=== PATIENT | female | born 1960 | race Asian ===

== ENCOUNTER 2016-07-21 14:08 | Emergency (ER) | payer OTHER ==
[~2016-07-21] VITALS: Ht 160 cm; Wt 124.7 kg
[2016-07-21 17:24] LABS: PLATELET COUNT 338 K/uL (152-353)
[2016-07-21 17:35] LABS: POTASSIUM 3.3 mmol/L (3.6-5.2); SODIUM 138 mmol/L (136-145)
== END 2016-07-21 19:27 | disposition home or self-care (01) ==
LOC: ED 14:08
DX: I10 Essential (primary) hypertension (principal); B34.9 Viral infection, unspecified
CPT/HCPCS: 80053; 81000; 85027; 96372; 99283; J0360

== ENCOUNTER 2017-02-11 10:38 | Emergency (ER) | payer OTHER ==
[~2017-02-11] VITALS: Ht 157.5 cm; Wt 121.6 kg
[2017-02-11 10:39] VITALS: TEMP 98.6
[2017-02-11 11:43] LABS: PLATELET COUNT 284 K/uL (152-353)
[2017-02-11 11:51] LABS: POTASSIUM 3.6 mmol/L (3.6-5.2); SODIUM 134 mmol/L (136-145)
[2017-02-11 14:20] VITALS: BP 170/100
== END 2017-02-11 14:20 | disposition home or self-care (01) ==
LOC: ED 10:38
DX: I16.0 Hypertensive urgency (principal)
CPT/HCPCS: 36415; 80053; 85027; 99284

== ENCOUNTER 2017-05-04 17:56 | Emergency (ER) | payer OTHER ==
[~2017-05-04] VITALS: Ht 157.5 cm; Wt 111.1 kg
[2017-05-04 18:09] VITALS: TEMP 98.9
[2017-05-04 18:54] LABS: PLATELET COUNT 314 K/uL (152-353)
[2017-05-04 19:53] VITALS: BP 178/98
== END 2017-05-04 19:54 | disposition home or self-care (01) ==
LOC: ED 17:56
DX: J06.9 Acute upper respiratory infection, unspecified (principal)
CPT/HCPCS: 36415; 85027; 87081; 87804; 87880; 99283

== ENCOUNTER 2017-07-07 08:02 | Emergency (ER) | payer OTHER ==
[~2017-07-07] VITALS: Ht 157.5 cm; Wt 108.9 kg
[2017-07-07] MEDS ORDERED: AMLODIPINE BESYLATE PO (08:23)
[2017-07-07] MEDS ORDERED: CLONIDINE0.3 MG PO (08:24)
[2017-07-07] MEDS ORDERED: COZAAR100 MG PO (08:24)
[2017-07-07] MEDS ORDERED: HYDROCHLOROT50 MG PO (08:25)
[2017-07-07 08:36] LABS: PLATELET COUNT 291 K/uL (152-353)
[2017-07-07 08:42] LABS: POTASSIUM 3.4 mmol/L (3.6-5.2)
[2017-07-07 10:21] VITALS: BP 150/89; TEMP 98.1
== END 2017-07-07 10:31 | disposition home or self-care (01) ==
LOC: ED 08:02
PROVIDERS: Emergency Medicine
DX: R07.89 Other chest pain (principal)
CPT/HCPCS: 36415; 80053; 82550; 83880; 84484; 85027; 85379; 93005; 99283

== ENCOUNTER 2018-01-24 11:32 | Emergency (ER) | payer OTHER ==
[~2018-01-24] VITALS: Ht 162.6 cm; Wt 90.7 kg
[~2018-01-24 11:32] MED LIST: AMLODIPINE BESYLATE PO; CLONIDINE0.3 MG PO; COZAAR100 MG PO; HYDROCHLOROT50 MG PO
[2018-01-24 11:45] VITALS: TEMP 98
[2018-01-24 12:36] LABS: PLATELET COUNT 327 K/uL (152-353)
[2018-01-24 12:43] LABS: POTASSIUM 3.7 mmol/L (3.6-5.2)
[2018-01-24 13:22] VITALS: BP 137/96
== END 2018-01-24 13:45 | disposition home or self-care (01) ==
LOC: ED 11:32
PROVIDERS: Family Medicine
DX: J06.9 Acute upper respiratory infection, unspecified (principal); J30.9 Allergic rhinitis, unspecified
CPT/HCPCS: 36415; 80053; 85027; 87077; 87081; 87185; 87880; 99283

== ENCOUNTER 2018-05-08 10:45 | Emergency (ER) | payer OTHER ==
[~2018-05-08] VITALS: Ht 157.5 cm; Wt 119.3 kg
[2018-05-08 10:50] VITALS: BP 123/88; TEMP 98.3
== END 2018-05-08 10:50 | disposition home or self-care (01) ==
LOC: ED 10:45
DX: I10 Essential (primary) hypertension (principal)
CPT/HCPCS: 99281

== ENCOUNTER 2018-11-15 12:36 | Outpatient (CLI) | payer OTHER | END 2018-11-15 23:47 | disposition home or self-care (01) | LOC: RESP 12:36 | DX: I10 Essential (primary) hypertension (principal); Z12.31 Encounter for screening mammogram for malignant neoplasm of breast ==

== ENCOUNTER 2018-11-16 12:49 | Outpatient (CLI) | payer OTHER | END 2018-11-16 23:56 | disposition home or self-care (01) | LOC: RESP 12:49 | DX: I10 Essential (primary) hypertension (principal); Z12.31 Encounter for screening mammogram for malignant neoplasm of breast | CPT/HCPCS: 93306 ==

== ENCOUNTER 2019-01-02 13:56 | Outpatient (CLI) | payer OTHER | END 2019-01-02 19:43 | disposition home or self-care (01) | LOC: US 13:56 | DX: R92.8 Other abnormal and inconclusive findings on diagnostic imaging of breast (principal) ==

== ENCOUNTER 2019-05-24 09:09 | Outpatient (CLI) | payer OTHER ==
[2019-05-24 09:34] LABS: PLATELET COUNT 339 K/uL (152-353)
[2019-05-24 09:47] LABS: POTASSIUM 3.9 mmol/L (3.6-5.2)
== END 2019-05-24 19:45 | disposition home or self-care (01) ==
LOC: LABW 09:09
PROVIDERS: Family Medicine
DX: I10 Essential (primary) hypertension (principal); E66.9 Obesity, unspecified; R53.83 Other fatigue
CPT/HCPCS: 36415; 80053; 80061; 82306; 82607; 84443; 85027

== ENCOUNTER 2019-12-06 09:04 | Outpatient (CLI) | payer OTHER ==
[2019-12-06 09:40] LABS: POTASSIUM 3.4 mmol/L (3.6-5.2)
[2019-12-06 10:08] LABS: PLATELET COUNT 308 K/uL (152-353)
== END 2019-12-06 21:27 | disposition home or self-care (01) ==
LOC: LABW 09:04
PROVIDERS: Nurse Practitioner Family
DX: U07.1 COVID-19 (principal)
CPT/HCPCS: 36415; 80053; 81000; 85027

== ENCOUNTER 2020-05-24 07:36 | Emergency (ER) | payer OTHER ==
[~2020-05-24] VITALS: Ht 157.5 cm; Wt 119.3 kg
[2020-05-24 07:44] VITALS: BP 183/90; TEMP 97.1
== END 2020-05-24 08:50 | disposition home or self-care (01) ==
LOC: ED 07:36
DX: R51.9 Headache, unspecified (principal); J32.8 Other chronic sinusitis
CPT/HCPCS: 96372; 99283; J1885

== ENCOUNTER 2020-08-07 12:13 | Outpatient (CLI) | payer OTHER | END 2020-08-07 20:35 | disposition home or self-care (01) | LOC: RAD 12:13 | PROVIDERS: ATTEND Nurse Practitioner Family | DX: K59.00 Constipation, unspecified (principal) ==

== ENCOUNTER 2021-06-17 08:23 | Outpatient (CLI) | payer OTHER ==
[2021-06-17 08:51] LABS: PLATELET COUNT 382 K/uL (152-353)
[2021-06-17 09:09] LABS: POTASSIUM 3.8 mmol/L (3.6-5.2)
== END 2021-06-17 19:35 | disposition home or self-care (01) ==
LOC: LABW 08:23
PROVIDERS: ATTEND Nurse Practitioner Primary Care
DX: E55.9 Vitamin D deficiency, unspecified (principal); E53.8 Deficiency of other specified B group vitamins; R53.83 Other fatigue; Z13.220 Encounter for screening for lipoid disorders; I10 Essential (primary) hypertension
CPT/HCPCS: 36415; 80053; 80061; 82306; 82607; 83036; 84443; 85027

== ENCOUNTER 2021-08-12 09:57 | Outpatient (CLI) | payer OTHER | END 2021-08-12 21:39 | disposition home or self-care (01) | LOC: MAMMO 09:57 | PROVIDERS: ATTEND Nurse Practitioner Primary Care | DX: Z12.31 Encounter for screening mammogram for malignant neoplasm of breast (principal) ==

== ENCOUNTER 2021-11-15 10:56 | Emergency (ER) | payer OTHER ==
[~2021-11-15] VITALS: Ht 157.5 cm; Wt 119.3 kg
[2021-11-15 10:58] VITALS: TEMP 98
[2021-11-15 11:28] LABS: PLATELET COUNT 308 K/uL (152-353)
[2021-11-15 11:37] LABS: POTASSIUM 3.5 mmol/L (3.6-5.2)
[2021-11-15 11:43] LABS: PARTIAL THROMBOPLASTIN TIME 27.1 SECONDS (24.5-33.6)
[2021-11-15 12:15] VITALS: BP 139/54
== END 2021-11-15 12:15 | disposition home or self-care (01) ==
LOC: ED 10:56
PROVIDERS: Hospitalist
DX: R07.89 Other chest pain (principal); I16.0 Hypertensive urgency; Z20.822 Contact with and (suspected) exposure to COVID-19
CPT/HCPCS: 80053; 82550; 83880; 84484; 85027; 85379; 85610; 85730; 87635; 93005; 99284; U0003

== ENCOUNTER 2022-08-03 07:00 | Emergency (ER) | payer OTHER ==
[~2022-08-03] VITALS: Ht 157.5 cm; Wt 108.9 kg
[2022-08-03 08:20] VITALS: BP 169/96; TEMP 97.5
== END 2022-08-03 08:25 | disposition home or self-care (01) ==
LOC: ED 07:00
DX: J20.9 Acute bronchitis, unspecified (principal); H10.9 Unspecified conjunctivitis
CPT/HCPCS: 87651; 99282